=== PATIENT | female | born 1980 | race African-American/Black ===

== ENCOUNTER 2016-08-07 18:20 | Emergency (ER) | payer SELFPAY ==
[2016-08-07 19:20] VITALS: BP 130/94; PULSE 61; TEMP 98.7; BMI 24.2
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
[2016-08-07] MEDS ORDERED: KETOROLAC TROMETHAMINE 60 MG/2 ML VIAL ONE (20:14)
[2016-08-07] MEDS ORDERED: KETOROLAC TROMETHAMINE 60 MG/2 ML VIAL IM ONE (20:14)
== END 2016-08-07 21:53 | disposition home or self-care (01) ==
LOC: FER 18:20
PROC: 3E0233Z Introduction of Anti-inflammatory into Muscle, Percutaneous Approach (ICD-10-PCS; principal; 2016-08-07)
DX: K08.419 Partial loss of teeth due to trauma, unspecified class (principal); S00.83XA Contusion of other part of head, initial encounter; S16.1XXA Strain of muscle, fascia and tendon at neck level, initial encounter; V43.62XA Car passenger injured in collision with other type car in traffic accident, initial encounter; Y93.89 Activity, other specified; Y92.410 Unspecified street and highway as the place of occurrence of the external cause; F17.210 Nicotine dependence, cigarettes, uncomplicated
CPT/HCPCS: 70100-TC; 72050-TC; 84703; 99282-25